=== PATIENT | male | born 1950 | race Caucasian/White ===

== ENCOUNTER 2022-01-22 16:23 | Inpatient (IN) | payer MEDICARE ==
--- NOTE | 2022-01-22 16:41 | ED ---
General Adult HPI - General Chief complaint: Recheck/Abnormal Lab/Rx Stated complaint: Irregular labs Time Seen by Provider: 01/22/22 16:25 Source: patient, EMS, RN notes reviewed, old records reviewed Mode of arrival: EMS Limitations: no limitations - History of Present Illness Initial comments: This is a 71-year-old male who presents emergency department stating that he has high cholesterol and does have a family history of heart disease. Patient s tates that he was walking on Wednesday and Wednesday which she normally does and he goes about 4-5 miles an about 40-50 minutes and he states he experienced chest pain on the outside of his chest which is abnormal for him and he also felt a little more short of breath than normal. Patient states is the reason he stopped walking he felt considerably better. Patient went to see his primary medical care doctor on Wednesday and blood was drawn. Patient was asymptomatic since those 2 episodes and he was golfing today when he got a phone call that his troponin was elevated and he needs to come to the emergency department. Patient does not have any symptoms at this time. Patient denies any recent feve r chills or cough. Patient denies any abdominal pain patient denies nausea vomiting diarrhea. Patient denies any swelling to his legs or calf tenderness. - Related Data Home Medications Medication Instructions Recorded Confirmed Aspirin EC [Ecotrin Low Dose] 81 mg PO Q48H 01/22/22 01/22/22 Multivitamins, Thera [Multivitamin 1 tab PO DAILY 01/22/22 01/22/22 (formulary)] Allergies Allergy/AdvReac Type Severity Reaction Status Date / Time bee venom protein (honey bee) Allergy Swelling Verified 01/22/22 17:26 Review of Systems ROS Statement: Those systems with pertinent positive or pertinent negative responses have been documented in the HPI. ROS Other: All systems not noted in ROS Statement are negative. Past Medical History Past Medical History: Hyperlipidemia History of Any Multi-Drug Resistant Organisms: None Reported Past Surgical History: Hernia Repair, Orthopedic Surgery Past Psychological History: No Psychological Hx Reported Smoking Status: Former smoker Past Alcohol Use History: Daily Past Drug Use History: None Reported General Exam - General Exam Comments Initial Comments: GENERAL: Patient is well-developed and well-nourished. Patient is nontoxic and well- hydrated and is in no acute distress. ENT: Neck is soft and supple. No significant lymphadenopathy is noted. Oropharynx is clear. Moist mucous membranes. Neck has full range of motion without eliciting any pain. EYES: The sclera were anicteric and conjunctiva were pink and moist. Extraocular movements were intact and pupils were equal round and reactive to light. Eyelids were unremarkable. PULMONARY: Unlabored respirations. Good breath sounds bilaterally. No audible rales rhonchi or wheezing was noted. CARDIOVASCULAR: There is a regular rate and rhythm without any murmurs gallops or rubs. ABDOMEN: Soft and nontender with normal bowel sounds. SKIN: Skin is clear with no lesions or rashes and otherwise unremarkable. NEUROLOGIC: Patient is alert and oriented x3. Cranial nerves II through XII are grossly intact. Motor and sensory are also intact. Normal speech, volume and content. Symmetrical smile. MUSCULOSKELETAL: Normal extremities with adequate strength and full range of motion. LYMPHATICS: No significant lymphadenopathy is noted PSYCHIATRIC: Normal psychiatric evaluation. Limitations: no limitations Course Vital Signs 01/22/22 16:25 Temperature 98.3 F Pulse Rate 84 Respiratory 18 Rate Blood Pressure 154/82 O2 Sat by Pulse 98 Oximetry Medical Decision Making - Medical Decision Making EKG shows sinus rhythm at 74 bpm WV interval 176 QRS is 91 Q-T intervals 392 QTC is 420. Patient's EKG shows no ST segment elevation or depression. Patient does have Q waves from V1 to V4. Also Q waves in inferior leads. Chest x-ray shows no acute normalities. I spoke with Dr. forrester after the troponin came back elevated and he wanted the patient on heparin. I placed the patient on heparin I gave the patient Nitropaste and aspirin I continue those on the floor wrote admitting orders I talked to Dr. Medrano he agreed to admit. - Lab Data Result diagrams: 01/22/22 16:42 01/22/22 16:42 Lab Results 01/22/22 01/22/22 01/22/22 Range/Units 16:42 16:42 16:42 WBC 6.1 (3.8-10.6) k/uL RBC 4.21 L (4.30-5.90) m/uL Hgb 13.1 (13.0-17.5) gm/dL Hct 38.7 L (39.0-53.0) % MCV 91.9 (80.0-100.0) fL MCH 31.0 (25.0-35.0) pg MCHC 33.7 (31.0-37.0) g/dL RDW 12.6 (11.5-15.5) % Plt Count 247 (150-450) k/uL MPV 7.2 Neutrophils % 62 % Lymphocytes % 25 % Monocytes % 8 % Eosinophils % 3 % Basophils % 1 % Neutrophils # 3.8 (1.3-7.7) k/uL Lymphocytes # 1.5 (1.0-4.8) k/uL Monocytes # 0.5 (0-1.0) k/uL Eosinophils # 0.2 (0-0.7) k/uL Basophils # 0.1 (0-0.2) k/uL PT 10.4 (9.0-12.0) sec INR 0.9 (<1.2) APTT 24.6 (22.0-30.0) sec Sodium 138 (137-145) mmol/L Potassium 3.8 (3.5-5.1) mmol/L Chloride 108 H (98-107) mmol/L Carbon Dioxide 26 (22-30) mmol/L Anion Gap 4 mmol/L BUN 14 (9-20) mg/dL Creatinine 0.91 (0.66-1.25) mg/dL Est GFR (CKD-EPI)AfAm >90 (>60 ml/min/1.73 sqM) Est GFR (CKD-EPI)NonAf 83 (>60 ml/min/1.73 sqM) Glucose 87 (74-99) mg/dL Calcium 8.5 (8.4-10.2) mg/dL Magnesium 1.9 (1.6-2.3) mg/dL Total Bilirubin 0.6 (0.2-1.3) mg/dL AST 54 (17-59) U/L ALT 28 (4-49) U/L Alkaline Phosphatase 76 (38-126) U/L Troponin I (0.000-0.034) ng/mL Total Protein 6.9 (6.3-8.2) g/dL Albumin 4.0 (3.5-5.0) g/dL 01/22/22 Range/Units 16:42 WBC (3.8-10.6) k/uL RBC (4.30-5.90) m/uL Hgb (13.0-17.5) gm/dL Hct (39.0-53.0) % MCV (80.0-100.0) fL MCH (25.0-35.0) pg MCHC (31.0-37.0) g/dL RDW (11.5-15.5) % Plt Count (150-450) k/uL MPV Neutrophils % % Lymphocytes % % Monocytes % % Eosinophils % % Basophils % % Neutrophils # (1.3-7.7) k/uL Lymphocytes # (1.0-4.8) k/uL Monocytes # (0-1.0) k/uL Eosinophils # (0-0.7) k/uL Basophils # (0-0.2) k/uL PT (9.0-12.0) sec INR (<1.2) APTT (22.0-30.0) sec Sodium (137-145) mmol/L Potassium (3.5-5.1) mmol/L Chloride (98-107) mmol/L Carbon Dioxide (22-30) mmol/L Anion Gap mmol/L BUN (9-20) mg/dL Creatinine (0.66-1.25) mg/dL Est GFR (CKD-EPI)AfAm (>60 ml/min/1.73 sqM) Est GFR (CKD-EPI)NonAf (>60 ml/min/1.73 sqM) Glucose (74-99) mg/dL Calcium (8.4-10.2) mg/dL Magnesium (1.6-2.3) mg/dL Total Bilirubin (0.2-1.3) mg/dL AST (17-59) U/L ALT (4-49) U/L Alkaline Phosphatase (38-126) U/L Troponin I 2.050 H* (0.000-0.034) ng/mL Total Protein (6.3-8.2) g/dL Albumin (3.5-5.0) g/dL Critical Care Time Critical Care Time: Yes Total Critical Care Time: 35 Disposition Clinical Impression: Non-STEMI (non-ST elevated myocardial infarction) Disposition: ADMITTED IP TO THIS HOSP Referrals: Dilan Medrano MD [Primary Care Provider] - 1-2 days Time of Disposition: 18:11
[2022-01-22 16:56] LABS: Basophils # (A) 0.1 k/uL (0-0.2); Basophils % (A) 1 %; Eosinophils # (A) 0.2 k/uL (0-0.7); Eosinophils % (A) 3 %; HCT 38.7 % (39.0-53.0); HGB 13.1 gm/dL (13.0-17.5); Lymphocytes # (A) 1.5 k/uL (1.0-4.8); Lymphocytes % (A) 25 %; MCHC 33.7 g/dL (31.0-37.0); MCV 91.9 fL (80.0-100.0); Mean Platelet Volume 7.2; Monocytes # (A) 0.5 k/uL (0-1.0); Monocytes % (A) 8 %; Neutrophils # (A) 3.8 k/uL (1.3-7.7); Neutrophils % (A) 62 %; Platelet Count 247 k/uL (150-450); RBC 4.21 m/uL (4.30-5.90); RDW 12.6 % (11.5-15.5); WBC 6.1 k/uL (3.8-10.6)
[2022-01-22 17:05] LABS: INR 0.9 (<1.2); Partial Thromboplastin Time 24.6 sec (22.0-30.0); Prothrombin Time 10.4 sec (9.0-12.0)
[2022-01-22 17:08] LABS: ALT 28 U/L (4-49); AST 54 U/L (17-59); African American GFR (CKD) >90 (>60 ml/min/1.73 sqM); Alkaline Phosphatase 76 U/L (38-126); Anion Gap 4 mmol/L; Blood Urea Nitrogen 14 mg/dL (9-20); Calcium 8.5 mg/dL (8.4-10.2); Carbon Dioxide 26 mmol/L (22-30); Chloride 108 mmol/L (98-107); Glucose 87 mg/dL (74-99); Magnesium 1.9 mg/dL (1.6-2.3); Non-African American GFR(CKD) 83 (>60 ml/min/1.73 sqM); Potassium 3.8 mmol/L (3.5-5.1); Sodium 138 mmol/L (137-145); Total Bilirubin 0.6 mg/dL (0.2-1.3); Total Protein 6.9 g/dL (6.3-8.2)
--- NOTE | 2022-01-22 17:21 | XR ---
EXAMINATION TYPE: XR chest 2V DATE OF EXAM: 01/22/2022 COMPARISON: NONE HISTORY: Shortness of breath TECHNIQUE: Frontal and lateral views of the chest are obtained. FINDINGS: Scattered senescent parenchymal changes noted. Hyperinflation compatible with COPD. No evidence for infiltrate. No evidence for atelectasis. Heart size is stable. Mediastinal structures are stable and grossly unremarkable. No evidence for hilar prominence. Degenerative changes dorsal spine. IMPRESSION: 1. No evidence for acute pulmonary disease.
[2022-01-22] MEDS ORDERED: ASPIRIN 81 MG PO STA (17:42)
[2022-01-22] MEDS ORDERED: HEPARIN SODIUM 1,000 UN/ML (10ML VL) IV ONE (17:42)
[2022-01-22] MEDS ORDERED: NITROGLYCERIN OINT 1 INCH/GM PACKET TOPICAL STA (17:42)
[2022-01-22] MEDS ORDERED: HEPARIN SOD,PORK IN 0.45% NACL 25,000 UNIT in 0.45% NACL 1 250ML.BAG IV SCH (17:45)
[2022-01-22] MEDS ORDERED: NITROGLYCERIN SL TABS 0.4 MG TAB SUBLINGUAL PRN (18:11)
[2022-01-22] MEDS: NITROGLYCERIN OINT 1 INCH/GM PACKET TOPICAL SCH (23:42)
[2022-01-23] MEDS: NITROGLYCERIN OINT 1 INCH/GM PACKET TOPICAL SCH ×3 (06:17→17:17)
--- NOTE | 2022-01-23 07:38 | P.HPIM ---
History of Present Illness H&P Date: 01/22/22 HISTORY OF PRESENT ILLNESS 71-year-old male one of my office patient with past medical history of BPH and hyperlipidemia who had hernia repair and minor orthopedic surgery otherwise has been healthy he is former smoker has not smoked long time drinks 2-3 beers on regular basis for the last 20 years. Patient developed to have mild tightness pressure and discomfort chest area with exertion apparently he walk 4-5 miles a day on regular basis on Wednesday and Wednesday developed to have I'll tightness and discomfort toward the end of his walk did not seek any help retention at the time his symptoms become slightly bit more aggravated on Wednesday while he was working on the out to [employer] and to some physical work he ended up telling his who called the office made an arrangement for him seen his EKG showed significant Q waves abnormality at the time and patient had refused to come to the emergency room and time. Blood work with troponin was done came back quite bed elevated patient was contacted to come to the emergency room and be admitted for possible ongoing RI at the time non-ST waves type. Ended up coming to demurs department at [facility] his chest pain-free at the time continue to have mild problem with exertion. His EKG showed Q waves abnormality in the anterior septal leads consistent with a Q waves in V1 to V4 and 3 with aVF. His troponin was 2.05 patient began symptom free at this time. Patient is going to stay in the hospital cardiology were called and he was diagnosed with non-ST RI most likely subacute will be going to the laboratory analyst probably tomorrow. REVIEW OF SYSTEMS Constitutional: No fever, no chills, no night sweats. No weight change. No weakness, fatigue or lethargy. No daytime sleepiness. EENT: No headache. No blurred vision or double vision, no loss of vision. No loss of Hearing, no ringing in the ears, no dizziness. No nasal drainage or congestion. No epistaxis. No sore throat. Lungs: No shortness of breath, cough, no sputum production. No wheezing. Cardiovascular: Mild pressure tightness mostly with exertion with no PND orthopnea, no history of angina or heart disease in the past. Abdominal: No abdominal pain. No nausea, vomiting. No diarrhea. No constipation. No bloody or tarry stools.. No loss of appetite. Genitourinary: No dysuria, increased frequency, urgency. No urinary retention. Musculoskeletal: No myalgias. No muscle weakness, no gait dysfunction, no frequent falls. No back pain. No neck pain. Integumentary: No wounds, no lesions. No rash or pruritus. No unusual bruising. No change in hair or nails. Neurologic: No aphasia. No facial droop. No change in mentation. No head injury. No headache. No paralysis. No paresthesia. Psychiatric: No depression. No anxiety. No mood swings. Endocrine: No abnormal blood sugars. No weight change. No excessive sweating or thirst. No cold intolerance. SOCIAL HISTORY He does not smoke, drink 3-4 beers a day for the last 20 years and he claimed has been without alcohol for a while in the past without having any major complication or withdrawal symptoms. FAMILY HISTORY The patient has 3 children are all living and well, 3 siblings with no major med ical problem. His father age 77 from tacitly cancer and heart disease had history of CABG, mother dying her 80s from dementia. PHYSICAL EXAMINATION Gen: This is a well-developed in no acute respiratory distress. HEENT: Head is atraumatic, normocephalic. Pupils equal, round. Sclerae is anicteric. NECK: Supple. No JVD. No lymphadenopathy. No thyromegaly. LUNGS: Clear to auscultation. No wheezes or rhonchi. No intercostal retractions. HEART: Regular rate and rhythm. No murmur. ABDOMEN: Soft. Bowel sounds are present. No masses. No tenderness. EXTREMITIES: No pedal edema. No calf tenderness. NEUROLOGICAL: Patient is awake, alert and oriented x3. Cranial nerves 2 through 12 are grossly intact. ASSESSMENT AND PLAN - Non-ST RI: Most likely subacute continue to have significantly elevated troponin with Q waves in the anteroseptal lead to indicate that he already had some damage, echocardiogram will be ordered for tomorrow morning patient be seen cardiology he probably need to go to the laboratory analyst for heart catheter for better decision of his coronary anatomy at this point and significant impact foot had with this RI. - Worsening shortness of breath with exertion: Most likely ischemic cardiomyopathy, waiting to measure his ejection fraction patient would benefit from smaller dose of [place] inhibitor and beta chloé also might require slight diuretics. - Hyperlipidemia: Has not been on any statin in the past patient be started on atorvastatin 80 mg daily. - BPH: Watch for any urinary retention. - History of alcohol consumption: We watch patient for any withdrawal symptoms at this point he consumed 3-4 beers a day watch if he developed any withdrawal symptoms or DVT. - GI prophylaxis: Patient be on Pepcid 20 mg daily. - DVT prophylaxis: Patient is on heparin drip currently. - CODE STATUS: Full code. Patient will be admitted to the hospital for a minimum of 2 night stay. Past Medical History Past Medical History: Hyperlipidemia History of Any Multi-Drug Resistant Organisms: None Reported Past Surgical History: Hernia Repair, Orthopedic Surgery Past Psychological History: No Psychological Hx Reported Smoking Status: Former smoker Past Alcohol Use History: Daily Past Drug Use History: None Reported Medications and Allergies Home Medications Medication Instructions Recorded Confirmed Type Aspirin EC [Ecotrin Low Dose] 81 mg PO Q48H 01/22/22 01/22/22 History Multivitamins, Thera [Multivitamin 1 tab PO DAILY 01/22/22 01/22/22 History (formulary)] Allergies Allergy/AdvReac Type Severity Reaction Status Date / Time bee venom protein (honey bee) Allergy Swelling Verified 01/22/22 17:26 Physical Exam Vitals: Vital Signs Temp Pulse Resp BP Pulse Ox 01/22/22 16:25 98.3 F 84 18 154/82 98 Intake and Output 01/22/22 01/22/22 01/22/22 06:59 14:59 22:59 Other: Weight 83.915 kg Results CBC & Chem 7: 01/22/22 16:42 01/22/22 16:42 Labs: Abnormal Lab Results - Last 24 Hours (Table) 01/22/22 01/22/22 01/22/22 Range/Units 16:42 16:42 16:42 RBC 4.21 L (4.30-5.90) m/uL Hct 38.7 L (39.0-53.0) % Chloride 108 H (98-107) mmol/L Troponin I 2.050 H* (0.000-0.034) ng/mL
[2022-01-23] MEDS ORDERED: ALPRAZolam 0.25 MG TAB PO PRN (07:39)
[2022-01-23] MEDS ORDERED: SODIUM CHLORIDE 0.9% 1,000 ML in EMPTY BAG 1 BAG IV SCH (08:15)
[2022-01-23] MEDS: METOPROLOL SUCCINATE (ER) 25 MG TAB.ER.24H PO SCH (08:40)
[2022-01-23] MEDS: ATORVASTATIN 80 MG TAB PO SCH (08:40)
[2022-01-23] MEDS: FAMOTIDINE 20 MG TAB PO SCH (08:41)
[2022-01-23] MEDS ORDERED: ASPIRIN 325 MG TAB PO SCH (09:00)
[2022-01-23] MEDS: lisinopriL 5 MG TAB PO SCH ×2 (09:02→19:34)
[2022-01-23 11:06] LABS: Chol/HDL Ratio 3.37 Ratio; LDL Cholesterol,Calculated 140.8 mg/dL (0.0-131.0); VLDL Calculation 14.58 mg/dL (5.00-40.00)
--- NOTE | 2022-01-23 11:23 | P.CRDCN ---
History of Present Illness History of present illness: HISTORY OF PRESENTING ILLNESS This is a pleasant 71-year-old male past medical history significant for hyperlipidemia in the past (was on Lipitor in the past), BPH, hernia repair, former smoker, daily alcohol use 2-3 beers per day. He does not follow with a social director. We have been asked to see in consultation for chest pain. Patient presents emergency department with intermittent chest pressure and tightness with exertion, abnormal EKG and troponin in outpatient PCP office. Patient states that he's been having intermittent tightness and chest pressure center of his chest. It is non-radiating. It has been worse with activity. He is very active and usually walks about 4-5 miles a day, he was developing worsening chest discomfort on Wednesday and Wednesday. Wednesday he was doing some outdoor yard work and had similar symptoms. He went to see his PCP and was noted to have EKG changes from prior EKG in June. Patient apparently did not want to go to the ER. Troponin was apparently drawn as an outpatient which was abnormal and patient was contacted and brought to the ER. He is currently chest pain free. He denies any shortness of breath, lightheadedness, dizziness, nausea, nyla phoresis. He denies any history of CAD, [place], stroke, diabetes, hypertension. Family history includes father had 3 vessel CABG in his late 60s. He denies any tobacco use. DIAGNOSTICS EKG reveals sinus rhythm, heart rate 74, T wave abnormalities seen in the anterior leads concerning for prior myocardial infarction Telemetry tracings indicate sinus mechanism, no arrhythmia noted. Chest xray no acute cardiopulmonary process. Laboratory reviewed, troponins 2.0, 2.4, 2.6, WBC 6.1, hemoglobin 13.1, platelets 247, sodium 138, potassium 3.8, BUN 14, serum crit 0.9, magnesium 1.9 Current home cardiac medications include aspirin 81 mg, multivitamin REVIEW OF SYSTEMS At the time of my exam: CONSTITUTIONAL: Denies fever or chills. CARDIOVASCULAR: Denies chest pain, shortness of breath, orthopnea, PND or palpitations. RESPIRATORY: Denies cough. GASTROINTESTINAL: Denies abdominal pain, diarrhea, constipation, nausea or vomiting. MUSCULOSKELETAL: Denies myalgias. NEUROLOGIC: Denies numbness, tingling, headacbe or weakness. ENDOCRINE: Denies fatigue, weight change, polydipsia or polyurina. GENITOURINARY: Denies burning, hematuria or urgency with micturation. HEMATOLOGIC: Denies history of anemia or bleeding. PHYSICAL EXAMINATION Blood pressure 102/55, heart 65, afebrile, saturations 94% on room air CONSTITUTIONAL: No apparent distress. HEENT: Head is normocephalic. Pupils are equal, round. Sclerae anicteric. Mucous membranes of the mouth are moist. No JVD. No carotid bruit. CHEST EXAMINATION: Lungs are clear to auscultation. No chest wall tenderness is noted on palpation or with deep breathing. HEART EXAMINATION: Regular rate and rhythm. S1, S2 heard. No murmurs, gallops or rub. ABDOMEN: Soft, nontender. Positive bowel sounds. EXTREMITIES: 2+ peripheral pulses, no lower extremity edema and no calf tenderness. NEUROLOGIC EXAMINATION: Patient is awake, alert and oriented x3. ASSESSMENT NSTEMI History of hyperlipidemia History of hernia repair Daily alcohol use PLAN Plan for cardiac catheterization today with Dr. Vaughn, patient is agreeable Continue IV heparin, aspirin, statin, beta chloé Obtain 2D echocardiogram and doppler study to assess cardiac structure and function. Lipid panel I have discussed the risks, benefits and alternative therapies for the above- mentioned procedure and for both sedation/analgesia as well as necessary blood product administration, if indicated, as they pertain to this patient. The patient has indicated understanding and acceptance of the risks and procedures discussed. Questions have been answered appropriately and he is agreeable to move forward with the above-stated procedure. Further recommendations based on clinical course Nurse practitioner note has been reviewed by physician. Signing provider agrees with the documented findings, assessment, and plan of care. Past Medical History Past Medical History: Hyperlipidemia History of Any Multi-Drug Resistant Organisms: None Reported Past Surgical History: Hernia Repair, Orthopedic Surgery Past Anesthesia/Blood Transfusion Reactions: No Reported Reaction Past Psychological History: No Psychological Hx Reported Smoking Status: Former smoker Past Alcohol Use History: Daily Past Drug Use History: None Reported Medications and Allergies Home Medications Medication Instructions Recorded Confirmed Type Aspirin EC [Ecotrin Low Dose] 81 mg PO Q48H 01/22/22 01/22/22 History Multivitamins, Thera [Multivitamin 1 tab PO DAILY 01/22/22 01/22/22 History (formulary)] Allergies Allergy/AdvReac Type Severity Reaction Status Date / Time bee venom protein (honey bee) Allergy Swelling Verified 01/22/22 17:26 Physical Exam Vitals: Vital Signs Temp Pulse Pulse Resp BP BP Pulse Ox 01/23/22 04:00 98 F 63 18 94/57 96 01/23/22 01:07 18 01/22/22 23:42 98 F 70 18 95/61 95 01/22/22 20:09 98 F 92 18 119/64 95 01/22/22 20:00 98 F 92 18 119/64 95 01/22/22 19:15 98.1 F 81 18 120/72 93 L 01/22/22 16:25 98.3 F 84 18 154/82 98 Intake and Output 01/22/22 01/23/22 01/23/22 22:59 06:59 14:59 Intake Total 250 200 Balance 250 200 Intake: Oral 250 200 Other: Voiding Method Toilet Toilet # Voids 1 1 Weight 83.915 kg Results 01/22/22 16:42 01/22/22 16:42 Cardiac Enzymes 01/22/22 01/22/22 01/22/22 Range/Units 16:42 16:42 18:57 AST 54 (17-59) U/L Troponin I 2.050 H* 2.420 H* (0.000-0.034) ng/mL 01/22/22 Range/Units 21:17 AST (17-59) U/L Troponin I 2.650 H* (0.000-0.034) ng/mL Coagulation 01/22/22 01/23/22 Range/Units 16:42 00:48 PT 10.4 (9.0-12.0) sec APTT 24.6 48.8 H (22.0-30.0) sec CBC 01/22/22 Range/Units 16:42 WBC 6.1 (3.8-10.6) k/uL RBC 4.21 L (4.30-5.90) m/uL Hgb 13.1 (13.0-17.5) gm/dL Hct 38.7 L (39.0-53.0) % Plt Count 247 (150-450) k/uL Comprehensive Metabolic Panel 01/22/22 Range/Units 16:42 Sodium 138 (137-145) mmol/L Potassium 3.8 (3.5-5.1) mmol/L Chloride 108 H (98-107) mmol/L Carbon Dioxide 26 (22-30) mmol/L BUN 14 (9-20) mg/dL Creatinine 0.91 (0.66-1.25) mg/dL Glucose 87 (74-99) mg/dL Calcium 8.5 (8.4-10.2) mg/dL AST 54 (17-59) U/L ALT 28 (4-49) U/L Alkaline Phosphatase 76 (38-126) U/L Total Protein 6.9 (6.3-8.2) g/dL Albumin 4.0 (3.5-5.0) g/dL Current Medications Generic Name Dose Route Start Last Admin Trade Name Freq PRN Reason Stop Dose Admin Alprazolam 0.25 mg 01/23/22 07:39 Alprazolam 0.25 Mg Tab PO BID PRN Anxiety Aspirin 325 mg 01/23/22 09:00 Aspirin 325 Mg Tab PO DAILY [facility] Atorvastatin Calcium 80 mg 01/23/22 09:00 Atorvastatin 80 Mg Tab PO DAILY [facility] Famotidine 20 mg 01/23/22 09:00 Famotidine 20 Mg Tab PO DAILY [facility] Heparin Sodium/Sodium Chloride 250 mls @ 10 mls/hr 01/22/22 17:45 01/22/22 18:20 25,000 unit/ Sodium Chloride IV 11.917 units/kg/hr .Q24H LEXI 10 mls/hr Administration Protocol 11.917 UNITS/KG/HR Lisinopril 5 mg 01/23/22 09:00 Lisinopril 5 Mg Tab PO DAILY [facility] Metoprolol Succinate 12.5 mg 01/23/22 09:00 Metoprolol Succinate (Er) 25 Mg Tab.Er.24h PO DAILY [facility] Nitroglycerin 0.4 mg 01/22/22 18:11 Nitroglycerin Sl Tabs 0.4 Mg Tab SUBLINGUAL Q5M PRN Chest Pain Nitroglycerin 1 inch 01/23/22 00:00 01/23/22 06:17 Nitroglycerin Oint 1 Inch/Gm Packet TOPICAL Not Given Q6HR LEXI Intake and Output 01/22/22 01/23/22 01/23/22 22:59 06:59 14:59 Intake Total 250 200 Balance 250 200 Intake: Oral 250 200 Other: Voiding Method Toilet Toilet # Voids 1 1 Weight 83.915 kg 07/07/22 16:42 01/22/22 16:42
--- NOTE | 2022-01-23 11:33 | CA ---
Transthoracic Echo Report Name: Tonny Pendleton Age: 71 Gender: M : 1950 Exam Date: 01/23/2022 08:34 Exam Location: [facility] Ht (in): 64 Wt (lb): 185 Ordering Physician: Flower Bowers Attending/Referring Phys: Premium Cancellation Clerk Aixa Li RDCS Procedure CPT: Indications: elevated trop, CP Cardiac Hx: Technical Quality: Technically difficult study Contrast 1: Lumason Total Dose (mL): 3 Contrast 2: Total Dose (mL): MEASUREMENTS (Male / Female) Normal Values 2D ECHO LV Diastolic Diameter PLAX 4.7 cm 4.2 - 5.9 / 3.9 - 5.3 cm LV Systolic Diameter PLAX 3.5 cm IVS Diastolic Thickness 1.0 cm 0.6 - 1.0 / 0.6 - 0.9 cm LVPW Diastolic Thickness 1.1 cm 0.6 - 1.0 / 0.6 - 0.9 cm LV Relative Wall Thickness 0.4 RV Internal Dim ED PLAX 3.1 cm LA Systolic Diameter LX 3.1 cm 3.0 - 4.0 / 2.7 - 3.8 cm M-MODE Aortic Root Diameter MM 3.0 cm LA Systolic Diameter MM 3.7 cm LA Ao Ratio MM 1.2 MV E Point Septal Separation 0.4 cm AV Cusp Separation MM 1.5 cm DOPPLER MV Area PHT 3.1 cm??? Mitral E Point Velocity 53.5 cm/s Mitral A Point Velocity 82.1 cm/s Mitral E to A Ratio 0.7 MV Deceleration Time 246.5 ms MV E' Velocity 7.4 cm/s Mitral E to MV E' Ratio 7.2 FINDINGS Left Ventricle Left ventricular ejection fraction is estimated at 40-45 %. Anterseptal , Apical , distal inferior, hypokinesis Right Ventricle Normal right ventricular size and function. Right Atrium Normal right atrial size. Left Atrium Normal left atrial size. Mitral Valve Structurally normal mitral valve. Mild mitral regurgitation. Aortic Valve Trileaflet aortic valve. Tricuspid Valve Structurally normal tricuspid valve. Trace to mild tricuspid regurgitation. Pulmonic Valve Structurally normal pulmonic valve. Pericardium Normal pericardium. Aorta Normal size aortic root and proximal ascending aorta. CONCLUSIONS Impaired only function was EF between 40-45% with anteroseptal and apical hypokinesia Previewed by: Dr. Ryan Navarro MD (Electronically Signed) Final Date: 23 January 2022 11:32
--- NOTE | 2022-01-23 11:42 | P.PN ---
Subjective Progress Note Date: 01/23/22 HISTORY OF PRESENT ILLNESS 71-year-old male one of my office patient with past medical history of BPH and hyperlipidemia who had hernia repair and minor orthopedic surgery otherwise has been healthy he is former smoker has not smoked long time drinks 2-3 beers on regular basis for the last 20 years. Patient developed to have mild tightness pressure and discomfort chest area with exertion apparently he walk 4-5 miles a day on regular basis on Wednesday and Wednesday developed to have I'll tightness and discomfort toward the end of his walk did not seek any help retention at the [facility] his symptoms become slightly bit more aggravated on Wednesday while he was working on the out to [employer] and to some physical work he ended up telling his who called the office made an arrangement for him seen his EKG showed significant Q waves abnormality at the time and patient had refused to come to the emergency room and time. Blood work with troponin was done came back quite bed elevated patient was contacted to come to the emergency room and be admitted for possible ongoing NM at the time non-ST waves type. Ended up coming to demurs department at [facility] his chest pain-free at the time continue to have mild problem with exertion. His EKG showed Q waves abnormality in the anterior septal leads consistent with a Q waves in V1 to V4 and 3 with aVF. His troponin was 2.05 patient began symptom free at this time. 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 01/23: Patient has been seen and followed by cardiology with plan for cardiac catheterization today. Patient denies having any chest pain, no shortness of breath at rest, no lightheadedness or dizziness. Patient has been afebrile, heart rate in the 60s, blood pressure 102/55, pulse ox 94% on room air. Triglycerides 72, cholesterol 221, LDL 140, HDL 65. Echocardiogram reveals EF of 40-45% with anteroseptal and apical hypokinesia. REVIEW OF SYSTEMS Constitutional: No fever, no chills, no night sweats. No weight change. No weakness, fatigue or lethargy. No daytime sleepiness. EENT: No headache. No blurred vision or double vision, no loss of vision. No loss of Hearing, no ringing in the ears, no dizziness. No nasal drainage or congestion. No epistaxis. No sore throat. Lungs: No shortness of breath, cough, no sputum production. No wheezing. Cardiovascular: Mild pressure tightness mostly with exertion with no PND orthopnea, no history of angina or heart disease in the past. Abdominal: No abdominal pain. No nausea, vomiting. No diarrhea. No constipation. No bloody or tarry stools.. No loss of appetite. Genitourinary: No dysuria, increased frequency, urgency. No urinary retention. Musculoskeletal: No myalgias. No muscle weakness, no gait dysfunction, no frequent falls. No back pain. No neck pain. Integumentary: No wounds, no lesions. No rash or pruritus. No unusual bruising. No change in hair or nails. Neurologic: No aphasia. No facial droop. No change in mentation. No head injury. No headache. No paralysis. No paresthesia. Psychiatric: No depression. No anxiety. No mood swings. Endocrine: No abnormal blood sugars. No weight change. No excessive sweating or thirst. PHYSICAL EXAMINATION Gen: This is a well-developed in no acute respiratory distress. HEENT: Head is atraumatic, normocephalic. Pupils equal, round. Sclerae is anicteric. NECK: Supple. No JVD. No lymphadenopathy. No thyromegaly. LUNGS: Clear to auscultation. No wheezes or rhonchi. No intercostal retractions. HEART: Regular rate and rhythm. No murmur. ABDOMEN: Soft. Bowel sounds are present. No masses. No tenderness. EXTREMITIES: No pedal edema. No calf tenderness. NEUROLOGICAL: Patient is awake, alert and oriented x3. Cranial nerves 2 through 12 are grossly intact. ASSESSMENT AND PLAN - Non-ST NM: Most likely subacute continue to have significantly elevated troponin with Q waves in the anteroseptal lead to indicate that he already had some damage, echocardiogram as above, cardiac catheterization today. Continue patient on aspirin, atorvastatin 80 mg daily, Toprol-XL 12.5 mg daily. - Worsening shortness of breath with exertion: Most likely ischemic cardiomyopathy, waiting to measure his ejection fraction patient would benefit from smaller dose of NY inhibitor and beta chloé also might require slight diuretics. - Hyperlipidemia: Has not been on any statin in the past patient be started on atorvastatin 80 mg daily. - BPH: Watch for any urinary retention. - History of alcohol consumption: We watch patient for any withdrawal symptoms at this point he consumed 3-4 beers a day watch if he developed any withdrawal symptoms or DVT. - GI prophylaxis: Patient be on Pepcid 20 mg daily. - DVT prophylaxis: Patient is on heparin drip currently. - CODE STATUS: Full code. DISCHARGE PLAN Home Impression and plan of care have been directed as dictated by the signing physician. Debra Villeda nurse practitioner acting as scribe for signing physician. Objective - Vital Signs Vital signs: Vital Signs Temp 98 F 01/23/22 04:00 Pulse 63 01/23/22 04:00 Resp 18 01/23/22 04:00 BP 94/57 01/23/22 04:00 Pulse Ox 96 01/23/22 04:00 FiO2 Intake & Output 01/22/22 01/23/22 01/23/22 18:59 06:59 18:59 Intake Total 450 Balance 450 Weight 83.915 kg 83.915 kg Intake: Oral 450 Other: Voiding Method Toilet # Voids 1 - Labs CBC & Chem 7: 01/22/22 16:42 01/22/22 16:42 Labs: Abnormal Lab Results - Last 24 Hours (Table) 01/22/22 01/22/22 01/22/22 Range/Units 16:42 16:42 16:42 RBC 4.21 L (4.30-5.90) m/uL Hct 38.7 L (39.0-53.0) % APTT (22.0-30.0) sec Chloride 108 H (98-107) mmol/L Troponin I 2.050 H* (0.000-0.034) ng/mL 01/22/22 01/22/22 01/23/22 Range/Units 18:57 21:17 00:48 RBC (4.30-5.90) m/uL Hct (39.0-53.0) % APTT 48.8 H (22.0-30.0) sec Chloride (98-107) mmol/L Troponin I 2.420 H* 2.650 H* (0.000-0.034) ng/mL
[2022-01-23] MEDS ORDERED: HEPARIN SODIUM 1,000 UN/ML (10ML VL) ONE (12:08)
[2022-01-23] MEDS ORDERED: fentaNYL (PF) 50 MCG/ML 2 ML AMP ONE (12:08)
[2022-01-23] MEDS ORDERED: VERAPAMIL 2.5 MG/ML 2 ML AMP ONE (12:08)
[2022-01-23] MEDS ORDERED: IV FLUID CONTINUATION 500 ML IV ONE (12:35)
[2022-01-23] MEDS ORDERED: MIDAZOLAM 2 MG/2 ML VIAL IV ONE (13:19)
[2022-01-23] MEDS ORDERED: fentaNYL (PF) 50 MCG/ML 2 ML AMP IV ONE (13:19)
[2022-01-23] MEDS ORDERED: LIDOCAINE 1% INJ 10MG/ML (5 ML VIAL-PF) SQ ONE ×2 (13:20→13:22)
[2022-01-23] MEDS ORDERED: VERAPAMIL SYRINGE (5 MG/10 ML) INTRAARTER ONE (13:23)
[2022-01-23] MEDS: HEPARIN SODIUM 1,000 UN/ML (10ML VL) IV ONE ×3 (13:27→13:49)
[2022-01-23] MEDS ORDERED: PRASUGREL 10 MG TAB ONE (13:36)
[2022-01-23] MEDS ORDERED: PRASUGREL 10 MG TAB PO ONE (13:37)
[2022-01-23] MEDS: NITROGLYCERIN 1000MCG/10ML SYRINGE INTRACORON ONE ×2 (13:40→13:51)
[2022-01-23] MEDS ORDERED: MAG HYDROX/AL HYDROX/SIMETH 30 ML CUP PO PRN (20:14)
[2022-01-23] MEDS ORDERED: ATROPINE SULFATE 0.1 MG/ML 10ML SYRINGE IV PRN (20:14)
[2022-01-23] MEDS ORDERED: RX INFO: IV CONTRAST WAS GIVEN 1 EACH MISC MISCELLANE PRN (20:14)
[2022-01-23] MEDS ORDERED: NITROGLYCERIN SL TABS 0.4 MG TAB SUBLINGUAL PRN (20:14)
[2022-01-23] MEDS ORDERED: ZOLPIDEM 5 MG TAB PO PRN (20:14)
--- NOTE | 2022-01-23 20:23 | P.PRCINT ---
Percutaneous Coronary Int. - Percutaneous Coronary Intervention Percutaneous Coronary Intervention: PROCEDURES PERFORMED: Left heart catheterization, bilateral coronary angiography, PCI mid LAD with 4.0 x 15mm Xience LESLIE, post dilated with a 4.0 NC balloon INDICATION: NSTEMI CONSENT:I have discussed the risks, benefits and alternative therapies for the above-mentioned procedure and for both sedation/analgesia as well as necessary blood product administration, if indicated, as they pertain to this patient. The patient has indicated understanding and acceptance of the risks and procedures discussed. PROCEDURE: After the risks, benefits and alternatives of the above mentioned procedure explained in detail with the patient, informed consent was obtained. Patient was taken to the catheterization lab and prepped and draped in usual fashion. 1% lidocaine was used to anesthetize the right radial artery. A 6- Chinese sheath was placed in the right radial artery using modified Seldinger technique. Left coronary angiography was performed with a 5-Chinese JL 3.5 catheter and right coronary angiography was performed with a 5-Chinese JR5 catheter in various views. A 5-Chinese FR5 catheter was inserted into the left ventricle and pressure measurements were obtained. The decision was made to perform PCI of the mid LAD. A 6Fr CLS 3.5 guide was used to engage the left main. A 0.014 BMW wire was placed in the distal LAD. Predilation was performed with a 3.0 x 8mm balloon. Next a 4.0 x 15mm Xience LESLIE was placed just distal to the diagonal 1 branch. The mid portion of the stent was post dilated with a 4.0 NC balloon. The wire was pulled and final angiograms were performed. Preintervention there was DONNA 2 flow and 99% stenosis and post intervention there was DONNA 3 flow and 0% stenosis. The right radial sheath was removed and a TR band was placed with hemostasis achieved. The patient tolerated the procedure well. Patient was transported back to the post catheterization holding area in stable condition. Conscious Sedation: Patient was monitored under the direct supervision of vision of myself for conscious sedation using Versed and fentanyl for a total duration of 33 minutes HEMODYNAMICS: Ao: 102/65 LV: 108/7, LVEDP 21mmHg SELECTIVE CORONARY ARTERIOGRAPHY: LEFT MAIN: The left main is a large caliber vessel which bifurcates into the LAD and circumflex. There is no significant stenosis. LEFT ANTERIOR DESCENDING CORONARY ARTERY: LAD is a large caliber vessel which wraps around to the apex. There is a focal mid LAD 99% stenosis and otherwise mild luminal irregularities. LEFT CIRCUMFLEX CORONARY ARTERY: Left circumflex is a moderate caliber vessel with mild luminal irregularities. RIGHT CORONARY ARTERY: The right coronary artery is a large caliber vessel which gives off a PDA and PLV branch and is the dominant vessel. There are mild luminal irregularities with up to 20% stenosis. FINAL IMPRESSION: 1. CAD as described above with 99% mid LAD stenosis and otherwise mild luminal irregularities up to 20% stenosis of the RCA. 2. S/p successful PCI mid LAD with 4.0 x 15mm Xience LESLIE, post dilated with a 4.0 NC balloon 3. Elevated left sided filling pressures PLAN: 1. Aggressive risk factor modification per most recent ACC/AHA guidelines. 2. Continue dual antiplatelets with aspirin and Effient for 12 months.
[2022-01-24] MEDS: NITROGLYCERIN OINT 1 INCH/GM PACKET TOPICAL SCH ×3 (00:08→12:24)
--- NOTE | 2022-01-24 04:14 | P.PN ---
Subjective HISTORY OF PRESENTING ILLNESS This is a pleasant 71-year-old male past medical history significant for hyperlipidemia in the past (was on Lipitor in the past), BPH, hernia repair, former smoker, daily alcohol use 2-3 beers per day. He does not follow with a [employer]. We have been asked to see in consultation for chest pain. Patient presents emergency department with intermittent chest pressure and tightness with exertion, abnormal EKG and troponin in outpatient PCP office. Patient states that he's been having intermittent tightness and chest pressure center of his chest. It is non-radiating. It has been worse with activity. He is very active and usually walks about 4-5 miles a day, he was developing worsening chest discomfort on Wednesday and Wednesday. Wednesday he was doing some outdoor yard work and had similar symptoms. He went to see his PCP and was noted to have EKG changes from prior EKG in June. Patient apparently did not want to go to the ER. Troponin was apparently drawn as an outpatient which was abnormal and patient was contacted and brought to the ER. He is currently chest pain free. He denies any shortness of breath, lightheadedness, dizziness, nausea, diaphoresis. He denies any history of CAD, [place], stroke, diabetes, hypertension. Family history includes father had 3 vessel CABG in his late 60s. He denies any tobacco use. DIAGNOSTICS EKG reveals sinus rhythm, heart rate 74, T wave abnormalities seen in the anterior leads concerning for prior myocardial infarction Telemetry tracings indicate sinus mechanism, no arrhythmia noted. Chest xray no acute cardiopulmonary process. Laboratory reviewed, troponins 2.0, 2.4, 2.6, WBC 6.1, hemoglobin 13.1, platelets 247, sodium 138, potassium 3.8, BUN 14, serum crit 0.9, magnesium 1.9 Current home cardiac medications include aspirin 81 mg, multivitamin 01/24 Patient seen and examined. Patient underwent left heart catheterization yesterday with PCI of LAD and otherwise normal disease. Echocardiogram showed EF 40-45%. His placed on dual antiplatelets. He admitted to some numbness and tingling in his right hand however appears related to the TR band being placed and has improved after taking the band off. His LVEDP was noted to be mildly elevated. PHYSICAL EXAMINATION Vital reviewed CONSTITUTIONAL: No apparent distress. HEENT: Head is normocephalic. Pupils are equal, round. Sclerae anicteric. Mucous membranes of the mouth are moist. No JVD. No carotid bruit. CHEST EXAMINATION: Lungs are clear to auscultation. No chest wall tenderness is noted on palpation or with deep breathing. HEART EXAMINATION: Regular rate and rhythm. S1, S2 heard. No murmurs, gallops or rub. ABDOMEN: Soft, nontender. Positive bowel sounds. EXTREMITIES: 2+ peripheral pulses, no lower extremity edema and no calf tenderness. NEUROLOGIC EXAMINATION: Patient is awake, alert and oriented x3. ASSESSMENT NSTEMI, s/p PCI LAD History of hyperlipidemia History of hernia repair Daily alcohol use Ischemic cardiomyopathy EF 40-45% PLAN Continue dual antiplatelets as well as heart failure regimen with beta chloé and low-dose lisinopril. Blood pressures have been borderline. Underwent successful PCI with mild cardiomyopathy EF 40-45%. Appears stable for discharge home today. Outpatient follow-up in 1 week. Objective - Vital Signs Vital signs: Vital Signs Temp 98.1 F 01/23/22 20:20 Pulse 67 01/24/22 00:05 Resp 17 01/24/22 00:05 BP 106/63 01/24/22 00:05 Pulse Ox 96 01/24/22 00:05 FiO2 Intake & Output 01/23/22 01/23/22 01/24/22 06:59 18:59 06:59 Intake Total 450 1445.667 Balance 450 1445.667 Weight 83.915 kg Intake: IV 774 Invasive Line 1 20 Sodium Chloride 0.9% 1, 504 000 ml In Empty Bag 1 bag @ 1 ML/KG/HR 83.915 mls/ hr IV .[id number] LEXI Rx#: [id number] Intake, IV Titration 161.667 Amount Heparin Sod,Pork in 0.45% 161.667 NaCl 25,000 unit In 0.45 % NaCl 1 250ml.bag @ 11. 917 UNITS/KG/HR 10 mls/hr IV .Q24H LEXI Rx#: [id number] Oral 450 510 Other: Voiding Method Toilet Toilet # Voids 1 1 - Labs CBC & Chem 7: 01/22/22 16:42 01/22/22 16:42 Labs: Abnormal Lab Results - Last 24 Hours (Table) 01/23/22 01/23/22 Range/Units 07:20 07:20 APTT 48.1 H (22.0-30.0) sec Cholesterol 221.00 H (0.00-200.00) mg/dL LDL Cholesterol, Calc 140.8 H (0.0-131.0) mg/dL HDL Cholesterol 65.60 H (40.00-60.00) mg/dL
[2022-01-24] MEDS ORDERED: HEPARIN SODIUM,PORCINE 10,000 UNIT in SODIUM CHLORIDE 0.9% 1,000 ML IRRIGATION PRN (07:00)
[2022-01-24] MEDS ORDERED: HEPARIN SODIUM,PORCINE 2,500 UNIT in SODIUM CHLORIDE 0.9% 250 ML IRRIGATION PRN (07:00)
[2022-01-24 07:43] LABS: Basophils # (A) 0.1 k/uL (0-0.2); Basophils % (A) 1 %; Eosinophils # (A) 0.2 k/uL (0-0.7); Eosinophils % (A) 4 %; HCT 40.1 % (39.0-53.0); HGB 13.7 gm/dL (13.0-17.5); Lymphocytes # (A) 1.2 k/uL (1.0-4.8); Lymphocytes % (A) 22 %; MCH 31.3 pg (25.0-35.0); MCHC 34.1 g/dL (31.0-37.0); MCV 91.8 fL (80.0-100.0); Mean Platelet Volume 7.5; Monocytes # (A) 0.4 k/uL (0-1.0); Monocytes % (A) 7 %; Neutrophils # (A) 3.5 k/uL (1.3-7.7); Neutrophils % (A) 65 %; Platelet Count 267 k/uL (150-450); RBC 4.37 m/uL (4.30-5.90); RDW 12.7 % (11.5-15.5); WBC 5.3 k/uL (3.8-10.6)
[2022-01-24 08:26] LABS: African American GFR (CKD) >90 (>60 ml/min/1.73 sqM); Anion Gap 8 mmol/L; Blood Urea Nitrogen 10 mg/dL (9-20); Calcium 8.6 mg/dL (8.4-10.2); Carbon Dioxide 22 mmol/L (22-30); Chloride 108 mmol/L (98-107); Glucose 155 mg/dL (74-99); Non-African American GFR(CKD) 87 (>60 ml/min/1.73 sqM); Potassium 4.1 mmol/L (3.5-5.1); Sodium 138 mmol/L (137-145)
[2022-01-24] MEDS ORDERED: ASPIRIN 81 MG PO SCH (09:00)
[2022-01-24] MEDS ORDERED: PRASUGREL 10 MG TAB PO SCH (09:00)
[2022-01-24] MEDS: METOPROLOL SUCCINATE (ER) 25 MG TAB.ER.24H PO SCH (09:12)
[2022-01-24] MEDS: lisinopriL 5 MG TAB PO SCH (09:12)
[2022-01-24] MEDS: FAMOTIDINE 20 MG TAB PO SCH (09:12)
[2022-01-24] MEDS: ATORVASTATIN 80 MG TAB PO SCH (09:12)
--- NOTE | 2022-01-24 10:56 | P.DS ---
Providers Date of admission: 01/22/22 18:11 Attending physician: Dilan Medrano Consults: 01/22/22 18:11 Consult Physician Urgent Consulting Provider: Mahendra Hussein Consult Reason/Comments: Chest pain Do you want consulting provider notified?: Yes 01/23/22 20:14 Consult Physician Routine Consulting Provider: Mahendra Hussein Consult Reason/Comments: Post Interventional Patient Do you want consulting provider notified?: Already Contacted Primary care physician: Dilan Medrano [facility] Course: HISTORY OF PRESENT ILLNESS 71-year-old male one of my office patient with past medical history of BPH and hyperlipidemia who had hernia repair and minor orthopedic surgery otherwise has been healthy he is former smoker has not smoked long time drinks 2-3 beers on regular basis for the last 20 years. Patient developed to have mild tightness pressure and discomfort chest area with exertion apparently he walk 4-5 miles a day on regular basis on Wednesday and Wednesday developed to have I'll tightness and discomfort toward the end of his walk did not seek any help retention at the time his symptoms become slightly bit more aggravated on Wednesday while he was working on the out to [employer] and to some physical work he ended up telling his who called the office made an arrangement for him seen his EKG showed significant Q waves abnormality at the time and patient had refused to come to the emergency room and time. Blood work with troponin was done came back quite bed elevated patient was contacted to come to the emergency room and be admitted for possible ongoing [place] at the time non-ST waves type. Ended up coming to demurs department at [facility] his chest pain-free at the time continue to have mild problem with exertion. His EKG showed Q waves abnormality in the anterior septal leads consistent with a Q waves in V1 to V4 and 3 with aVF. His troponin was 2.05 patient began symptom free at this time. Patient is going to stay in the hospital cardiology were called and he was diagnosed with non-ST NY most likely subacute will be going to the [employer] probably tomorrow. 01/23: Patient has been seen and followed by cardiology with plan for cardiac catheterization today. Patient denies having any chest pain, no shortness of breath at rest, no lightheadedness or dizziness. Patient has been afebrile, heart rate in the 60s, blood pressure 102/55, pulse ox 94% on room air. Triglycerides 72, cholesterol 221, LDL 140, HDL 65. Echocardiogram reveals EF of 40-45% with anteroseptal and apical hypokinesia. 01/24: Patient had angioplasty and stent placement of the LAD yesterday had 99 percentile blockage of the time. Patient is asymptomatic today and doing very well. He is clear to be discharged by cardiology, will be on antiplatelet agent, aspirin, beta chloé, statin and Bonilla. Patient be seen in the office I will be seeing cardiology in the next week or so his ejection fraction was 40-45 percentile another echocardiogram will be ordered for 6 weeks. REVIEW OF SYSTEMS Constitutional: No fever, no chills, no night sweats. No weight change. No weakness, fatigue or lethargy. No daytime sleepiness. EENT: No headache. No blurred vision or double vision, no loss of vision. No loss of Hearing, no ringing in the ears, no dizziness. No nasal drainage or congestion. No epistaxis. No sore throat. Lungs: No shortness of breath, cough, no sputum production. No wheezing. Cardiovascular: Mild pressure tightness mostly with exertion with no PND orthopnea, no history of angina or heart disease in the past. Abdominal: No abdominal pain. No nausea, vomiting. No diarrhea. No constipation. No bloody or tarry stools.. No loss of appetite. Genitourinary: No dysuria, increased frequency, urgency. No urinary retention. Musculoskeletal: No myalgias. No muscle weakness, no gait dysfunction, no frequent falls. No back pain. No neck pain. Integumentary: No wounds, no lesions. No rash or pruritus. No unusual bruising. No change in hair or nails. Neurologic: No aphasia. No facial droop. No change in mentation. No head injury. No headache. No paralysis. No paresthesia. Psychiatric: No depression. No anxiety. No mood swings. Endocrine: No abnormal blood sugars. No weight change. No excessive sweating or thirst. PHYSICAL EXAMINATION Gen: This is a well-developed in no acute respiratory distress. HEENT: Head is atraumatic, normocephalic. Pupils equal, round. Sclerae is anicteric. NECK: Supple. No JVD. No lymphadenopathy. No thyromegaly. LUNGS: Clear to auscultation. No wheezes or rhonchi. No intercostal retractions. HEART: Regular rate and rhythm. No murmur. ABDOMEN: Soft. Bowel sounds are present. No masses. No tenderness. EXTREMITIES: No pedal edema. No calf tenderness. NEUROLOGICAL: Patient is awake, alert and oriented x3. Cranial nerves 2 through 12 are grossly intact. Hospital course: Patient was stabilized, end up going to the [employer] had 99 percentile blockage of the LAD, angioplasty and stent placement was done and patient was stabilized continue medical management titrate medication patient be able to be discharged home on 02/03/2022. ASSESSMENT AND PLAN - Non-ST NY: Post angioplasty and stent placement of the LAD. - Subtotal occlusion of the LAD, post angioplasty and stent placement stable and doing well. - Ischemic cardiomyopathy: Secondary to acute onset of [place], we'll continue BONILLA inhibitor along with beta chloé patient might require diuretics if continue to be symptomatic with shortness of breath. - Hyperlipidemia: Has not been on any statin in the past patient be started on atorvastatin 80 mg daily. - BPH: Watch for any urinary retention. - History of alcohol consumption: We watch patient for any withdrawal symptoms at this point he consumed 3-4 beers a day watch if he developed any withdrawal symptoms or DVT. Patient is stable after his angioplasty and stent placement his up and about doing well not having any shortness of breath or chest pain with titrate medical management and send patient home today to follow as an outpatient in the office by cardiology as well. DISCHARGE PLAN Home Plan - Discharge Summary Discharge Rx Participant: No New Discharge Prescriptions: New Prasugrel [Effient] 10 mg PO DAILY #90 tab Nitroglycerin Oint [Nitro-Bid Oint] 1 inch TOPICAL Q6HR #25 packet Metoprolol Succinate (ER) [Toprol XL] 12.5 mg PO DAILY #90 tab lisinopriL [Zestril] 5 mg PO DAILY #90 tab Atorvastatin [Lipitor] 80 mg PO DAILY #90 tab Continue Aspirin EC [Ecotrin Low Dose] 81 mg PO Q48H Discontinued Multivitamins, Thera [Multivitamin (formulary)] 1 tab PO DAILY Discharge Medication List Aspirin EC [Ecotrin Low Dose] 81 mg PO Q48H 01/22/22 [History] Atorvastatin [Lipitor] 80 mg PO DAILY #90 tab 01/24/22 [Rx] Metoprolol Succinate (ER) [Toprol XL] 12.5 mg PO DAILY #90 tab 01/24/22 [Rx] Nitroglycerin Oint [Nitro-Bid Oint] 1 inch TOPICAL Q6HR #25 packet 01/24/22 [Rx] Prasugrel [Effient] 10 mg PO DAILY #90 tab 01/24/22 [Rx] lisinopriL [Zestril] 5 mg PO DAILY #90 tab 01/24/22 [Rx] Follow up Appointment(s)/Referral(s): Víctor Vaughn DO [STAFF PHYSICIAN] - 1 Week Dilan Medrano MD [Primary Care Provider] - 1-2 days Patient Instructions/Handouts: *Surgery [facility] - After Heart Catheterization - Amb ulatory Care Instructions, Angina (GEN), Heart Attack (DC), Heart Failure (ER), Heart Healthy Diet (ED), Mediterranean Diet (DC) Discharge Disposition: HOME SELF-CARE
[2022-01-24 11:40] VITALS: BMI 25.7
[2022-01-24 13:08] VITALS: BP 121/69; PULSE 62; RESP 17; TEMP 97.6
== END 2022-01-24 13:05 | disposition home or self-care (01) | DRG 247 ==
LOC: EC 16:23 → 3SCARD 18:11
PROVIDERS: ADMIT Internal Medicine Geriatric Medicine; ATTEND Internal Medicine Geriatric Medicine
PROC: 027034Z Dilation of Coronary Artery, One Artery with Drug-eluting Intraluminal Device, Percutaneous Approach (ICD-10-PCS; principal; 2022-01-22)
PROC: 4A023N7 Measurement of Cardiac Sampling and Pressure, Left Heart, Percutaneous Approach (ICD-10-PCS; 2022-01-22)
PROC: B2111ZZ Fluoroscopy of Multiple Coronary Arteries using Low Osmolar Contrast (ICD-10-PCS; 2022-01-22)
PROC: B2151ZZ Fluoroscopy of Left Heart using Low Osmolar Contrast (ICD-10-PCS; 2022-01-22)
DX: I21.4 Non-ST elevation (NSTEMI) myocardial infarction (principal); I25.10 Atherosclerotic heart disease of native coronary artery without angina pectoris; E78.00 Pure hypercholesterolemia, unspecified; I25.5 Ischemic cardiomyopathy; N40.0 Benign prostatic hyperplasia without lower urinary tract symptoms; E78.5 Hyperlipidemia, unspecified; I25.2 Old myocardial infarction; Z87.891 Personal history of nicotine dependence; Z79.82 Long term (current) use of aspirin; Z82.49 Family history of ischemic heart disease and other diseases of the circulatory system
CPT/HCPCS: 36415; 71046; 80048; 80053; 80061; 83735; 84484; 85025; 85610; 85730; 93005; 93306; 93458; 96374; 99291

== ENCOUNTER → 2022-05-26 | Outpatient (CLI) | payer MEDICARE ==
[2022-05-26 14:38] LABS: ALT 36 U/L (10-49); AST 40 U/L (14-35); Chol/HDL Ratio 2.27 Ratio; LDL Cholesterol,Calculated 83.8 mg/dL (0.0-131.0); VLDL Calculation 13.14 mg/dL (5.00-40.00)
== END | disposition home or self-care (01) ==
LOC: LABWHC1 07:47
PROVIDERS: ATTEND Internal Medicine
DX: E78.2 Mixed hyperlipidemia (principal)
CPT/HCPCS: 36415; 80061; 84450; 84460

== ENCOUNTER 2023-02-24 11:47 | Emergency (ER) | payer MEDICARE ==
[2023-02-24 11:58] VITALS: TEMP 98.1
--- NOTE | 2023-02-24 13:08 | ED ---
General Adult HPI - General Chief complaint: Abdominal Pain Stated complaint: abd pain Time Seen by Provider: 02/24/23 12:00 Source: patient, RN notes reviewed, old records reviewed Mode of arrival: ambulatory Limitations: no limitations - History of Present Illness Initial comments: This is a 72-year-old male presents emergency Department complaining of central abdominal pain. Patient states it started 2 hours prior to arrival. Patient states it was severe and when he looked down his abdomen it was like a golf ball size lump protruding from the center of his abdomen which his verified. Patient states the pain lasted pretty much until he got to the emergency department by down and eventually the lump in the pain subsided spontaneously. Patient states she was getting nauseated but he did not vomit. Patient denies any diarrhea. Patient denies any fever chills. Patient denies any heavy lifting or straining lately. Patient denies symptoms similar to this in the past. - Related Data Home Medications Medication Instructions Recorded Confirmed Aspirin EC [Ecotrin Low Dose] 81 mg PO Q48H 01/22/22 01/22/22 Previous Rx's Medication Instructions Recorded Atorvastatin [Lipitor] 80 mg PO DAILY #90 tab 01/24/22 Metoprolol Succinate (ER) [Toprol 12.5 mg PO DAILY #90 tab 01/24/22 XL] Nitroglycerin Oint [Nitro-Bid Oint] 1 inch TOPICAL Q6HR #25 packet 01/24/22 Prasugrel [Effient] 10 mg PO DAILY #90 tab 01/24/22 lisinopriL [Zestril] 5 mg PO DAILY #90 tab 01/24/22 Allergies Allergy/AdvReac Type Severity Reaction Status Date / Time bee venom protein (honey bee) Allergy Swelling Verified 02/24/23 11:58 Review of Systems ROS Statement: Those systems with pertinent positive or pertinent negative responses have been documented in the HPI. ROS Other: All systems not noted in ROS Statement are negative. Past Medical History Past Medical History: Hyperlipidemia History of Any Multi-Drug Resistant Organisms: None Reported Past Surgical History: Hernia Repair, Orthopedic Surgery Additional Past Surgical History / Comment(s): stent placed 01/22/22 Past Anesthesia/Blood Transfusion Reactions: No Reported Reaction Past Psychological History: No Psychological Hx Reported Smoking Status: Former smoker Past Alcohol Use History: Daily Past Drug Use History: None Reported General Exam - General Exam Comments Initial Comments: GENERAL: Patient is well-developed and well-nourished. Patient is nontoxic and well- hydrated and is in mild distress. ENT: Neck is soft and supple. No significant lymphadenopathy is noted. Oropharynx is clear. Moist mucous membranes. Neck has full range of motion without eliciting any pain. EYES: The sclera were anicteric and conjunctiva were pink and moist. Extraocular movements were intact and pupils were equal round and reactive to light. Eyelids were unremarkable. PULMONARY: Unlabored respirations. Good breath sounds bilaterally. No audible rales rhonchi or wheezing was noted. CARDIOVASCULAR: There is a regular rate and rhythm without any murmurs gallops or rubs. ABDOMEN: Patient has some central abdominal tenderness just above the umbilicus also appears to be a small defect there is indicative of a ventral hernia SKIN: Skin is clear with no lesions or rashes and otherwise unremarkable. NEUROLOGIC: Patient is alert and oriented x3. Cranial nerves II through XII are grossly intact. Motor and sensory are also intact. Normal speech, volume and content. Symmetrical smile. MUSCULOSKELETAL: Normal extremities with adequate strength and full range of motion. No lower extremity swelling or edema. No calf tenderness. LYMPHATICS: No significant lymphadenopathy is noted PSYCHIATRIC: Normal psychiatric evaluation. Limitations: no limitations Course Vital Signs 02/24/23 11:52 Temperature 98.1 F Pulse Rate 57 L Respiratory 18 Rate Blood Pressure 111/65 O2 Sat by Pulse 96 Oximetry Medical Decision Making - Medical Decision Making Was pt. sent in by a medical professional or institution (, PA, [facility], urgent care, hospital, or long-term...) When possible be specific @ -No Did you speak to anyone other than the patient for history (EMS, parent, family, police, friend...)? What history was obtained from this source @ -No Did you review nursing and triage notes (agree or disagree)? Why? @ -I reviewed and agree with nursing and triage notes Were old charts reviewed (outside hosp., previous admission, EMS record, old EKG, old radiological studies, urgent care reports/EKG's, long-term records)? Report findings @ -I reviewed prior charts of prior labwork on the patient Differential Diagnosis (chest pain, altered mental status, abdominal pain women, abdominal pain men, vaginal bleeding, weakness, fever, dyspnea, syncope, headache, dizziness, GI bleed, back pain, seizure, CVA, palpatations, mental health, musculoskeletal)? @ -Differential Abdominal Pain Men: Appendicitis, cholecystitis, diverticulosis, ischemic bowel, pancreatitis, hepatitis, UTI, gastroenteritis, AAA, incarcerated hernia, bowel obstruction, constipation, inflammatory bowel, hepatitis, peptic ulcer disease, splenic infarction, perforated viscus, testicular torsion, this is not meant to be an all-inclusive list EKG interpreted by me (3pts min.). @ -As above X-rays interpreted by me (1pt min.). @ -None done CT interpreted by me (1pt min.). @ -CT of the abdomen shows a inguinal hernia as well as an umbilical hernia containing fat. U/S interpreted by me (1pt. min.). @ -None done What testing was considered but not performed or refused? (CT, X-rays, U/S, labs)? Why? @ -None What meds were considered but not given or refused? Why? @ -None Did you discuss the management of the patient with other professionals (professionals i.e. , PA, [facility], lab, RT, psych nurse, web content & social media manager, delivery aide, teacher, information officer, case management director)? Give summary @ -No Was smoking cessation discussed for >3mins.? @ -No Was critical care preformed (if so, how long)? @ -No Were there social determinants of health that impacted care today? How? (Homelessness, low income, unemployed, alcoholism, drug addiction, transportation, low edu. Level, literacy, decrease access to med. care, usp, rehab)? @ -No Was there de-escalation of care discussed even if they declined (Discuss DNR or withdrawal of care, Hospice)? DNR status @ -No What co-morbidities impacted this encounter? (DM, HTN, Smoking, COPD, CAD, Cancer, CVA, ARF, Chemo, Hep., AIDS, mental health diagnosis, sleep apnea, morbid obesity)? @ -None Was patient admitted / discharged? Hospital course, mention meds given and route, prescriptions, significant lab abnormalities, going to OR and other pertinent info. @ -Patient's umbilical hernia has been reduced by having the patient laid down in bed. Patient states the pain is considerably better and after the lab work came back I went back and reevaluated the patient he states he has no pain whatsoever unless she touches the umbilicus. Patient does have an inguinal hernia and I reduced it easily at this time. Undiagnosed new problem with uncertain prognosis? @ -No Drug Therapy requiring intensive monitoring for toxicity (Heparin, Nitro, Insulin, Cardizem)? @ -No Were any procedures done? @ -No Diagnosis/symptom? @ -Inguinal hernia, umbilical hernia, Acute, or Chronic, or Acute on Chronic? @ -Acute on chronic Uncomplicated (without systemic symptoms) or Complicated (systemic symptoms)? @ -Complicated Side effects of treatment? @ -No Exacerbation, Progression, or Severe Exacerbation? @ -No Poses a threat to life or bodily function? How? (Chest pain, [place], [place], pneumonia, PE, COPD, DKA, ARF, appy, cholecystitis, CVA, Diverticulitis, Homicidal, Suicidal, threat to staff... and all critical care pts) @ -No - Lab Data Result diagrams: 02/24/23 13:08 02/24/23 13:08 Lab Results 02/24/23 02/24/23 02/24/23 Range/Units 13:08 13:08 13:08 WBC 8.2 (3.8-10.6) k/uL RBC 4.90 (4.30-5.90) m/uL Hgb 15.0 (13.0-17.5) gm/dL Hct 44.6 (39.0-53.0) % MCV 91.1 (80.0-100.0) fL MCH 30.6 (25.0-35.0) pg MCHC 33.6 (31.0-37.0) g/dL RDW 12.7 (11.5-15.5) % Plt Count 222 (150-450) k/uL MPV 7.4 Neutrophils % 81 % Lymphocytes % 12 % Monocytes % 5 % Eosinophils % 1 % Basophils % 0 % Neutrophils # 6.6 (1.3-7.7) k/uL Lymphocytes # 1.0 (1.0-4.8) k/uL Monocytes # 0.4 (0-1.0) k/uL Eosinophils # 0.1 (0-0.7) k/uL Basophils # 0.0 (0-0.2) k/uL Sodium 136 L (137-145) mmol/L Potassium 4.4 (3.5-5.1) mmol/L Chloride 103 (98-107) mmol/L Carbon Dioxide 26 (22-30) mmol/L Anion Gap 7 mmol/L BUN 13 (9-20) mg/dL Creatinine 0.91 (0.66-1.25) mg/dL Est GFR (CKD-EPI)AfAm >90 (>60 ml/min/1.73 sqM) Est GFR (CKD-EPI)NonAf 83 (>60 ml/min/1.73 sqM) Glucose 113 H (74-99) mg/dL Plasma Lactic Acid Jaylon 0.8 (0.7-2.0) mmol/L Calcium 9.2 (8.4-10.2) mg/dL Total Bilirubin 0.7 (0.2-1.3) mg/dL AST 47 (17-59) U/L ALT 38 (4-49) U/L Alkaline Phosphatase 62 (38-126) U/L Total Protein 7.9 (6.3-8.2) g/dL Albumin 4.7 (3.5-5.0) g/dL Amylase 56 (30-110) U/L Lipase 86 (23-300) U/L Disposition Clinical Impression: Umbilical hernia, Inguinal hernia Disposition: HOME SELF-CARE Condition: Good Is patient prescribed a controlled substance at d/c from ED?: No Referrals: Dilan Medrano MD [Primary Care Provider] - 1-2 days Margarita Nguyen MD [STAFF PHYSICIAN] - 1-2 days Time of Disposition: 13:58
[2023-02-24 13:19] LABS: Basophils % (A) 0 %; Eosinophils # (A) 0.1 k/uL (0-0.7); Eosinophils % (A) 1 %; HCT 44.6 % (39.0-53.0); Lymphocytes % (A) 12 %; MCH 30.6 pg (25.0-35.0); MCHC 33.6 g/dL (31.0-37.0); MCV 91.1 fL (80.0-100.0); Mean Platelet Volume 7.4; Monocytes # (A) 0.4 k/uL (0-1.0); Monocytes % (A) 5 %; Neutrophils # (A) 6.6 k/uL (1.3-7.7); Neutrophils % (A) 81 %; Platelet Count 222 k/uL (150-450); RDW 12.7 % (11.5-15.5); WBC 8.2 k/uL (3.8-10.6)
--- NOTE | 2023-02-24 13:38 | CT ---
EXAMINATION TYPE: CT abdomen pelvis wo con DATE OF EXAM: 02/24/2023 COMPARISON: None HISTORY: abdominal pain CT DLP: 627.2 mGycm Examination of the solid and hollow viscera is limited given the lack of contrast. FINDINGS: LUNG BASES: No evidence for nodule. No evidence for infiltrate. LIVER/GB: The gallbladder is unremarkable. No space-occupying hepatic lesion. PANCREAS: No pancreatic mass identified. No inflammatory process seen. SPLEEN: No evidence for splenomegaly. No intrasplenic lesions seen. ADRENALS: No adrenal nodules identified. No evidence for thickening. KIDNEYS: No evidence for renal mass. No nephrolithiasis. No hydronephrosis. BOWEL: Appendix has a normal appearance. No evidence of bowel obstruction. No inflammatory process. Lymph nodes: No evidence for adenopathy greater than 1 cm. Abdominal aorta: Atheromatous changes seen. No evidence for aneurysm. Genital organs: No significant abnormality. Osseous structures: Grade 2 anterolisthesis L5 on S1 measuring 1.6 cm with bilateral spondylolysis. S evere degenerative disc space narrowing and endplate sclerosis. Other: Fat-containing umbilical hernia measuring 1.7 x 1.2 cm. Fat-containing left inguinal hernia me asuring 8.6 cm in length by 4.3 x 3.8 cm. There is mild stranding within the hernia which may reflect strangulation. IMPRESSION: 1.Fat-containing left inguinal hernia measuring 8.6 cm in length by 4.3 x 3.8 cm. There is mild stran ding within the hernia which may reflect strangulation. 2. Fat-containing umbilical hernia without obvious strangulation.
[2023-02-24 13:44] LABS: ALT 38 U/L (4-49); AST 47 U/L (17-59); African American GFR (CKD) >90 (>60 ml/min/1.73 sqM); Albumin 4.7 g/dL (3.5-5.0); Alkaline Phosphatase 62 U/L (38-126); Amylase 56 U/L (30-110); Anion Gap 7 mmol/L; Blood Urea Nitrogen 13 mg/dL (9-20); Calcium 9.2 mg/dL (8.4-10.2); Carbon Dioxide 26 mmol/L (22-30); Chloride 103 mmol/L (98-107); Glucose 113 mg/dL (74-99); Lipase 86 U/L (23-300); Non-African American GFR(CKD) 83 (>60 ml/min/1.73 sqM); Potassium 4.4 mmol/L (3.5-5.1); Sodium 136 mmol/L (137-145); Total Bilirubin 0.7 mg/dL (0.2-1.3); Total Protein 7.9 g/dL (6.3-8.2)
[2023-02-24 14:20] VITALS: BP 101/61; PULSE 56; RESP 16
== END 2023-02-24 14:20 | disposition home or self-care (01) ==
LOC: EC 11:47
DX: K40.90 Unilateral inguinal hernia, without obstruction or gangrene, not specified as recurrent (principal); Z87.891 Personal history of nicotine dependence; Z91.030 Bee allergy status
CPT/HCPCS: 36415; 74176; 80053; 82150; 83605; 83690; 85025; 99285

== ENCOUNTER → 2023-03-17 | Outpatient (CLI) | payer MEDICARE ==
[2023-03-17 13:34] LABS: ALT 34 U/L (10-49); AST 42 U/L (14-35); Chol/HDL Ratio 1.91 Ratio; LDL Cholesterol,Calculated 65.5 mg/dL (0.0-131.0); VLDL Calculation 10.36 mg/dL (5.00-40.00)
== END | disposition home or self-care (01) ==
LOC: LABWHC1 08:05
PROVIDERS: ATTEND Internal Medicine
DX: E78.2 Mixed hyperlipidemia (principal)
CPT/HCPCS: 36415; 80061; 84450; 84460

== ENCOUNTER → 2023-06-29 | Outpatient (CLI) | payer MEDICARE ==
[2023-06-29 15:43] LABS: Basophils # (A) 0.03 X 10*3/uL (0.00-0.10); Basophils % (A) 0.6 %; Eosinophils # (A) 0.25 X 10*3/uL (0.04-0.35); Eosinophils % (A) 4.7 %; HCT 46.4 % (39.6-50.0); HGB 15.1 g/dL (13.0-17.0); Lymphocytes # (A) 1.96 X 10*3/uL (0.90-5.00); Lymphocytes % (A) 36.6 %; MCH 30.3 pg (27.0-32.0); MCHC 32.5 g/dL (32.0-37.0); MCV 93.2 FL (80.0-97.0); Mean Platelet Volume 10.3 FL (9.5-12.2); Monocytes % (A) 11.2 %; NRBC Per 100 WBC 0 X 10*3/uL (0.00-0.01); Neutrophils % (A) 46.7 %; Platelet Count 267 X 10*3/uL (140-440); RBC 4.98 X 10*6/uL (4.40-5.60); RDW 13.2 % (11.5-14.5); WBC 5.35 X 10*3/uL (4.50-10.00)
[2023-06-29 15:57] LABS: ALT 33 U/L (10-49); AST 29 U/L (14-35); Albumin 4.5 g/dL (3.8-4.9); Alkaline Phosphatase 69 U/L (41-126); Blood Urea Nitrogen 14.1 mg/dL (9.0-27.0); Calcium 9.6 mg/dL (8.7-10.3); Chloride 105 mmol/L (96-109); Chol/HDL Ratio 2.29 Ratio; Creatine Kinase 159 U/L (35-257); Globulin 2.5 g/dL (1.6-3.3); Glucose 105 mg/dL (70-110); LDL Cholesterol,Calculated 72.3 mg/dL (0.0-131.0); Potassium 5.5 mmol/L (3.5-5.5); Sodium 141 mmol/L (135-145); Total Bilirubin 0.3 mg/dL (0.3-1.2)
== END | disposition home or self-care (01) ==
LOC: LABPAT 08:17
PROVIDERS: ATTEND Surgery
DX: Z01.818 Encounter for other preprocedural examination (principal); I21.4 Non-ST elevation (NSTEMI) myocardial infarction; K40.90 Unilateral inguinal hernia, without obstruction or gangrene, not specified as recurrent; E78.5 Hyperlipidemia, unspecified; R73.9 Hyperglycemia, unspecified; R94.31 Abnormal electrocardiogram [ECG] [EKG]; R00.1 Bradycardia, unspecified
CPT/HCPCS: 80053; 80061; 82550; 83036; 84443; 85025; 86850; 86900; 86901; 93005

== ENCOUNTER → 2023-07-05 | Day surgery (SDC) | payer MEDICARE ==
[2023-06-30 12:22] VITALS: BMI 25.0
[~2023-07-05] MED LIST: ACETAMINOPHEN TAB 325 MG TAB PO SCH; ACETAMINOPHEN TAB 500 MG TAB PO PRN; BUPIVACAINE (PF) 0.25% 30 ML VIAL SQ ONE; DEXAMETHASONE SOD PHOSPHATE 4 MG/ML 1 ML VIAL IV ONE; DEXAMETHASONE SOD PHOSPHATE 4 MG/ML 1 ML VIAL IVP ONE; GLYCOPYRROLATE 0.2 MG/ML 2 ML VIAL ONE; HEPARIN SODIUM,PORCINE 5,000 UNIT/ML 1 ML VIAL SQ PRN; HYDROmorphone 0.5 MG/0.5 ML SYRINGE IVP PRN; IBUPROFEN 600 MG TAB PO SCH; LIDOCAINE 1% (10MG/ML) FOR IV START INTRADERMA PRN; LIDOCAINE 1% INJ 10MG/ML (20 ML MDV) ONE; MIDAZOLAM 2 MG/2 ML VIAL IV PRN; MIDAZOLAM 2 MG/2 ML VIAL ONE; NEOSTIGMINE 1 MG/ML 10 ML VIAL ONE; ONDANSETRON 4 MG/2 ML VIAL IVP ONE; PHENYLEPHRINE-0.9% NACL SYG 1,000 MCG/10 ML SYRINGE ONE; PROPOFOL 10 MG/ML 20 ML VIAL IV ONE; ROCURONIUM 10 MG/ML (5 ML VIAL) IV ONE; SUCCINYLCHOLINE CHLORIDE 200 MG/10 ML VIAL IV ONE; TAMSULOSIN 0.4 MG CAP.ER.24H PO ONE; fentaNYL (PF) 50 MCG/ML 2 ML AMP IV PRN; fentaNYL (PF) 50 MCG/ML 2 ML AMP ONE
[2023-07-05] MEDS: LACTATED RINGERS 1,000 ML IV SCH ×2 (07:24→11:01)
--- NOTE | 2023-07-05 08:00 | P.GSHP ---
History of Present Illness H&P Date: 07/05/23 Chief Complaint: Umbilical and left inguinal hernia 73-year-old male seen previously in the office. Here today for elective repair of umbilical and inguinal hernia. Patient with history of previous right inguinal hernia repair in the past. Mild soreness in both the left groin and the umbilicus. Past Medical History Past Medical History: Hypertension, Osteoarthritis (OA) History of Any Multi-Drug Resistant Organisms: None Reported Past Surgical History: Heart Catheterization With Stent, Hernia Repair Additional Past Surgical History / Comment(s): Stent placed 01/22/22, finger surgery. Past Anesthesia/Blood Transfusion Reactions: No Reported Reaction Date of Last Stent Placement:: 01/22/22 Past Psychological History: No Psychological Hx Reported Smoking Status: Former smoker Past Alcohol Use History: Daily Additional Past Alcohol Use History / Comment(s): Quit smoking 40 yrs ago. Drinks 3 beers daily. Aware no use 24 hrs prior to procedure. Past Drug Use History: None Reported - Past Family History Father Family Medical History: Cancer Medications and Allergies Home Medications Medication Instructions Recorded Confirmed Type Aspirin EC [Ecotrin Low Dose] 81 mg PO Q48H 01/22/22 07/05/23 History Fruit/Veggies Capsule 1 cap PO DAILY 06/30/23 07/05/23 History Metoprolol Succinate (ER) [Toprol 25 mg PO QAM 06/30/23 07/05/23 History XL] Rosuvastatin Calcium 40 mg PO DAILY 06/30/23 07/05/23 History lisinopriL [Zestril] 5 mg PO QAM 06/30/23 07/05/23 History Allergies Allergy/AdvReac Type Severity Reaction Status Date / Time bee venom protein (honey bee) Allergy Swelling Verified 07/05/23 06:45 Surgical - Exam Vital Signs Temp Pulse Resp BP Pulse Ox 97.9 F 61 18 129/65 96 07/05/23 07:15 07/05/23 07:15 07/05/23 07:15 07/05/23 07:15 07/05/23 07:15 Physical exam: General: Well-developed, well-nourished HEENT: Normocephalic, sclerae nonicteric Abdomen: Nontender, nondistended, small reducible umbilical hernia, moderate- sized left inguinal hernia Extremities: No edema Neuro: Alert and oriented Assessment and Plan (1) Inguinal hernia Narrative/Plan: 73-year-old male with left inguinal hernia and umbilical hernia. We'll proceed with open repair umbilical hernia with possible mesh, da Elaine assisted laparoscopic left inguinal hernia with mesh, possible open, possible bilateral. Risks of bleeding, infection, recurrence, bladder and bowel injury, numbness, nerve injury, conversion to an open procedure were discussed with the patient. The patient understands and wishes to proceed. Current Visit: Yes Status: Acute Code(s): K40.90 - UNIL INGUINAL HERNIA, W/O OBST OR GANGR, NOT SPCF RECUR SNOMED Code(s): 899237948
[2023-07-05 09:46] VITALS: RESP 16; TEMP 98.2
--- NOTE | 2023-07-05 10:21 | P.OP ---
Date of Procedure: 07/05/23 Procedure(s) Performed: PREOPERATIVE DIAGNOSIS: Umbilical hernia, left inguinal hernia POSTOPERATIVE DIAGNOSIS: Same PROCEDURE: Open repair umbilical hernia, laparoscopic da Elaine assisted repair left inguinal hernia with mesh SURGEON: Dr. Vargas ANESTHESIA: General OPERATIVE PROCEDURE DETAILS: Patient was placed in the operating table in the supine position. The patient was placed under general anesthesia. The abdomen was prepped and draped in usual sterile fashion. A small curvilinear supraumbilical incision was made. The fascia was dissected. The patient had a 1.5 cm fascial defect present at the umbilicus. The hernia sac was excised. The 8 mm trocar was advanced into the perineal cavity under direct visualization. 2-0 Ethibond trochars were placed on either side of the trocar to close the fascia. Insufflation took place to 15 mmHg. An 8 mm trocar was placed into the peritoneal cavity. 2 additional 8 mm trochars were placed in the right upper quadrant and left upper quadrant under visualization. The robotic arms were then brought in and docked into place. The fenestrated bip olar was used in the left arm and the laparoscopic paradise was utilized in the right arm. A 30 8 mm scope was used in the up position. The peritoneal cavity was inspected. The patient had a very small direct hernia on the right. This was less than 1 cm in size and was asymptomatic. This was not repaired. Patient a large indirect hernia on the left. The peritoneum was incised in a horizontal fashion cephalad to the internal inguinal ring. Following that careful dissection of the preperitoneal space took place. This took place using both electrocautery, sharp dissection but primarily blunt dissection. Visualization of the pubic tubercle and Coy's ligament took place medially. Full dissection took place laterally as well. The hernia sac was fully dissected. Once we had adequate space the [id number] Progrip mesh was advanced into the preperitoneal space and flattened out appropriately to cover all potential hernia sites. The mesh was sutured to Coy's ligament using a short running absorbable 30V lock suture. The peritoneal defect was then closed using a absorbable 2-0 VLok suture. The hernia sac was incorporated into the peritoneal closure to help prevent future recurrence. The pneumoperitoneum was then evacuated. The umbilical hernia was then addressed. The trocar was removed. The fascia was cleared of the overlying umbilicus and fat. This was then closed using interrupted [id number] Ethibond sutures. No mesh was utilized. The umbilicus was sutured down to the fascia using a 3-0 Vicryl suture. The subcutaneous tissues were closed using 3-0 Vicryl sutures. The skin of all 3 sites was closed using a 4-0 Monocryl stitch. Skin glue was then applied. HERNIA CHARACTERISTICS: Length: 1.5 Width: 1 Type: Reducible umbilical TYPE OF MESH USED: Large progrip LOCATION OF MESH: Preperitoneal FIXATION: Absorbable 30V lock PREOPERATIVE DISCUSSION ON SMOKING CESSASTION: Yes PREOPERATIVE DISCUSSION ON MORBID OBESITY: Yes PREOPERATIVE DISCUSSION ON APPROPRIATE USE OF NARCOTIC USE: Yes PREOPERATIVE EDUCATION: Multi Modal, Smoking Cessation and Weight Loss with BMI over 35. DISPOSITION: Stable to recovery room
[2023-07-05 11:29] VITALS: BP 101/56; PULSE 62
== END ==
LOC: OR 06:16
PROVIDERS: ATTEND Surgery
DX: K40.90 Unilateral inguinal hernia, without obstruction or gangrene, not specified as recurrent (principal); K42.9 Umbilical hernia without obstruction or gangrene; I10 Essential (primary) hypertension; I25.10 Atherosclerotic heart disease of native coronary artery without angina pectoris; M19.90 Unspecified osteoarthritis, unspecified site; Z95.5 Presence of coronary angioplasty implant and graft; Z87.891 Personal history of nicotine dependence; F10.90 Alcohol use, unspecified, uncomplicated; Z80.9 Family history of malignant neoplasm, unspecified; Z79.82 Long term (current) use of aspirin; Z79.899 Other long term (current) drug therapy; Z91.030 Bee allergy status; Z98.890 Other specified postprocedural states
CPT/HCPCS: 49591; 49650; S2900